=== PATIENT | female | born 1945 | race Caucasian/White ===

== ENCOUNTER → 2023-06-29 | Outpatient (REF) | payer MEDICARE | LOC: M LAB REF 16:06 | PROVIDERS: ATTEND Nurse Practitioner Family | DX: M54.50 Low back pain, unspecified (principal); R30.0 Dysuria ==

== ENCOUNTER 2025-08-22 20:40 | Emergency (ER) | payer MEDICARE ==
[~2025-08-22] VITALS: Ht 152.4 cm; Wt 94.3 kg
[~2025-08-22 20:40] MED LIST: HYDR-3715 PO
[2025-08-22] MEDS ORDERED: HYDR50TA47 PO (20:51)
[2025-08-22] MEDS ORDERED: AMLO1TAB25 PO (20:54)
[2025-08-22 21:17] LABS: BASO # 0.1 10^3/uL (0.0-0.2); BASO % 1.1 % (0.0-1.0); EOS # 0.2 10^3/uL (0.0-0.5); EOS % 1.9 % (0.0-3.0); LYMPH # 1.9 10^3/uL (1.5-5.0); LYMPH % 21.4 % (24.0-44.0); MONO # 0.6 10^3/uL (0.0-0.8); MONO % 6.7 % (2.0-8.0); NEUTROPHILS # 6.1 10^3/uL (1.5-8.5); NEUTROPHILS % 68.6 % (36.0-66.0); PLATELET COUNT, AUTOMATED 344 10^3/uL (150-450)
[2025-08-22 21:30] LABS: INR 0.92
[2025-08-22 21:41] LABS: CK-MB VALUE MASS < 1.0 NG/ML (<3.6)
[2025-08-22 21:43] LABS: CALCIUM LEVEL 8.5 MG/DL (8.3-10.6); CARBON DIOXIDE LEVEL 22 MMOL/L (20-31); CHLORIDE LEVEL 108 MMOL/L (98-107); CREATININE FOR GFR 1.44 MG/DL (0.55-1.30); GLOMERULAR FILTRATION RATE 36.8 (>32); MAGNESIUM LEVEL 1.8 MG/DL (1.8-2.4); POTASSIUM SERUM 3.8 MMOL/L (3.5-5.1); SODIUM LEVEL 139 MMOL/L (136-145)
[2025-08-22 21:48] LABS: CPK CREATINE PHOSPHOKINASE 71 U/L (34-145)
[2025-08-22] MEDS ORDERED: ISOVUE-370 76% 100 ML VIAL As Ordered ONE (22:50)
[2025-08-22 23:04] LABS: FREE T4 1.22 NG/DL (0.89-1.76)
[2025-08-23 00:52] LABS: KETONE, URINE AUTO RFX NEGATIVE (NEGATIVE); LEUKOCYTE ESTERASE UR AUTO RFX 3+ (NEGATIVE); MUCUS, URINE RFX SMALL (NEGATIVE); NITRITE, URINE AUTO RFX NEGATIVE (NEGATIVE); RBC, URINE AUTO RFX 3 /HPF (0-3); SQUAM EPITHELIAL CELL UR AURFX 4 /HPF (0-6); WBC, URINE AUTO RFX 100 /HPF (0-3)
[2025-08-23 03:15] VITALS: BP 180/98; TEMP 96.8; O2SAT 97
== END 2025-08-23 03:33 | disposition home or self-care (01) ==
LOC: M ED 20:40
DX: R55 Syncope and collapse (principal); I49.3 Ventricular premature depolarization; M19.011 Primary osteoarthritis, right shoulder; M19.012 Primary osteoarthritis, left shoulder; J98.11 Atelectasis; R00.0 Tachycardia, unspecified; I10 Essential (primary) hypertension; F10.10 Alcohol abuse, uncomplicated; Z79.899 Other long term (current) drug therapy
CPT/HCPCS: 36415; 70450; 71045; 71275; 80048; 81001; 82550; 82553; 83735; 84439; 84443; 84484; 85025; 85610; 85730; 87088; 87186; 87486; 87581; 87633; 87798; 93005; 93041; 94760; 99285; Q9967